=== PATIENT | female | born 1975 | race Caucasian/White ===

== ENCOUNTER 2020-06-12 06:00 | Day surgery (SDC) | payer OTHER ==
[~2020-06-12 06:00] MED LIST: COZAAR100 MG PO; HYDROCHLOROTH12.5 MG PO; LIPOFEN150 MG PO; METFORMIN HCL1000 M2 PO; OMEGA-31000 MG PO; SYNTHROID150 MCG PO; TRULICITY1.5 MG/0.5
== END 2020-06-12 14:06 | disposition home or self-care (01) ==
LOC: CIR.AMB 06:00
PROVIDERS: ATTEND Urology
DX: N20.0 Calculus of kidney (principal); Z20.828 Contact with and (suspected) exposure to other viral communicable diseases

== ENCOUNTER 2020-06-15 12:21 | Emergency (ER) | payer OTHER ==
[~2020-06-15] VITALS: Ht 165.1 cm; Wt 72.6 kg
[2020-06-15] MEDS ORDERED: ZOFRAN8 MG SL (18:23)
[2020-06-15] MEDS ORDERED: BUTALBIT-ACETA1 EACH PO (18:23)
== END 2020-06-15 19:16 | disposition home or self-care (01) ==
LOC: ER 12:21
DX: K29.70 Gastritis, unspecified, without bleeding (principal); Z03.818 Encounter for observation for suspected exposure to other biological agents ruled out

== ENCOUNTER 2021-08-01 07:28 | Day surgery (SDC) | payer OTHER ==
[~2021-08-01 07:28] MED LIST changes: +BUTALBIT-ACETA1 EACH PO; +JENTADUETO 2.51 EAC2 PO; +ZOFRAN8 MG SL
== END 2021-08-01 17:10 | disposition home or self-care (01) ==
LOC: CIR.AMB 07:28
PROVIDERS: ATTEND Colon & Rectal Surgery
DX: K64.4 Residual hemorrhoidal skin tags (principal); K64.2 Third degree hemorrhoids; Z20.822 Contact with and (suspected) exposure to COVID-19